=== PATIENT | female | born 1990 | race Caucasian/White ===

== ENCOUNTER 2020-01-02 17:55 | Emergency (ER) | payer SELFPAY ==
[2020-01-02 18:18] VITALS: BP 135/90; PULSE 89; RESP 18; TEMP 36.8; O2SAT 97; BMI 36.1
[2020-01-02 19:03] VITALS: BP 128/84; PULSE 85; RESP 14; O2SAT 97
--- NOTE | 2020-01-02 19:11 | W.ED.SKABFB ---
HPI - Skin/Abscess/Foreign Bdy General: Chief complaint: Skin/Abscess/Foreign Body Stated complaint: facial swelling Time Seen by Provider: 01/02/20 18:49 Source: patient Mode of arrival: ambulatory Limitations: no limitations History of Present Illness: HPI narrative: 29-year-old female who states that this morning she noticed a small sore to the right side of her face and had some erythema and tenderness to it. States it is warm to touch. She denies any drainage. She denies any worsening or improving factors. States the pain is very minimal. MD complaint: rash and abscess/boil Associated symptoms: Deny chills, fever(s), nausea or vomiting Review of Systems Const: Denies: fever(s), chills, body aches or change in appetite Eyes: Denies: blurry vision or eye discomfort ENMT: Denies: throat pain or dental pain Card: Denies: chest pain Resp: Denies: dyspnea GI: Denies: abdominal pain, nausea, vomiting or diarrhea : Denies: dysuria Musc: Denies: neck pain or back pain Skin/Breast: Reports: erythema and sores Neuro: Denies: headache(s) Psych: Denies: depression Christian/Lymph: Denies: easy bruising All/Imm: Denies: urticaria Physical Exam Const: COMMON NORMALS: no acute distress, patient oriented x3 and healthy appearing HENMT: COMMON NORMALS: normocephalic and atraumatic HEAD & SCALP: normocephalic and atraumatic Eye: COMMON NORMALS: Equal, round and reactive pupils present and EOMs intact bilaterally PUPIL: Yes Equal, round and reactive pupils present Neck/C-Spine: COMMON NORMALS: full ROM and supple Chest: COMMONS NORMALS: normal inspection of the chest and normal palpation of entire chest wall Resp: COMMON NORMALS: normal respiratory effort, No retractions, No use of accessory muscles and clear to auscultation bilaterally AUSCULTATION: clear to auscultation bilaterally Cardio: COMMON NORMALS: regular rate, regular rhythm and No murmurs present (Cardio) RATE: regular rate RHYTHM: regular rhythm GI: COMMON NORMALS: Normal to inspection, nondistended, normoactive bowel sounds present, Soft to palpation, non-tender and no masses PALPATION: Yes Soft to palpation Extremity: COMMON NORMALS: normal to inspection and full ROM Neuro: COMMON NORMALS: patient oriented x3, moves all extremities and no focal motor deficits Psych: COMMON NORMALS: mental status grossly normal, Normal thought process present and cooperative THOUGHT PROCESS: Normal thought process present Skin: COMMON NORMALS: no wounds NARRATIVE SKIN EXAM: Slight area of cellulitis to right side of the face with one sore with no abscess formation at this time. Course Vital Signs: Vital signs: Vital Signs Temperature 98.3 F 01/02/20 18:18 Pulse Rate 85 01/02/20 19:03 Respiratory Rate 14 01/02/20 19:03 Blood Pressure 128/84 01/02/20 19:03 Pulse Oximetry 97 01/02/20 19:03 MDM - Skin/Abscess/Foreign Bdy MDM Narrative: Medical decision making narrative: Patient presents with cellulitis to right side of her face. She has no abscess formation at this time. She is to do warm compresses and will place her on Bactrim. I informed her if she has any signs of abscess she is to return and will need it drained. Discharge Plan Discharge Patient Disposition: Home Clinical Impression: Cellulitis Qualifiers: Site of cellulitis: face Qualified Code(s): L03.211 - Cellulitis of face Condition: Stable Prescriptions: New Bactrim DS 800-160 mg tablet 1 tab PO BID 10 Days Qty: 20 RF: 0 Discharge Orders: Discharge Order (Routine); Ordered 01/02/20 Ordered By: Marv Juan Discharge Diet: Advance as tolerated Discharge Activity: Resume usual activity Patient Instructions: Cellulitis (ED) Discharge Date/Time: 01/02/20 19:03 Coding Level of Care Code ED Screening Tech for Jaida Baires
== END 2020-01-02 19:03 | disposition home or self-care (01) ==
PROVIDERS: Emergency Provider Emergency Medicine
DX: L03.211 Cellulitis of face (principal)
CPT/HCPCS: 12345; 99281

== ENCOUNTER 2020-01-04 21:36 | Emergency (ER) | payer SELFPAY ==
[2020-01-04 22:27] VITALS: PULSE 95; RESP 18; TEMP 37; O2SAT 98
--- NOTE | 2020-01-04 23:59 | ED_ITS ---
HPI - Skin/Abscess/Foreign Bdy General: Chief complaint: Skin/Abscess/Foreign Body Stated complaint: cyst Time Seen by Provider: 01/04/20 21:39 Source: patient Mode of arrival: ambulatory Limitations: no limitations History of Present Illness: HPI narrative: 29-year-old female who has an abscess to the right side of her face. She was seen here 2 days ago but had no abscess formation at that time and was started on Bactrim. She states that the area is increased and she had slight drainage from it as well. States she is also had an abscess pop up to her left lower leg. States both areas are painful and rates pain a 3 out of 10. Denies any fevers. She has been taking her Bactrim. Associated symptoms: Deny chills, fever(s), nausea or vomiting Review of Systems Const: Denies: fever(s), chills, body aches or change in appetite Eyes: Denies: blurry vision or eye discomfort ENMT: Denies: throat pain or dental pain Card: Denies: chest pain Resp: Denies: dyspnea GI: Denies: abdominal pain, nausea, vomiting or diarrhea : Denies: dysuria Musc: Denies: neck pain or back pain Skin/Breast: Reports: other (abscess) Neuro: Denies: headache(s) Psych: Denies: depression Christian/Lymph: Denies: easy bruising All/Imm: Denies: urticaria Physical Exam Const: COMMON NORMALS: no acute distress, patient oriented x3 and healthy appearing HENMT: COMMON NORMALS: normocephalic and atraumatic HEAD & SCALP: normocephalic and atraumatic Eye: COMMON NORMALS: Equal, round and reactive pupils present and EOMs intact bilaterally PUPIL: Yes Equal, round and reactive pupils present Neck/C-Spine: COMMON NORMALS: full ROM and supple Chest: COMMONS NORMALS: normal inspection of the chest and normal palpation of entire chest wall Resp: COMMON NORMALS: normal respiratory effort, No retractions, No use of accessory muscles and clear to auscultation bilaterally AUSCULTATION: clear to auscultation bilaterally Cardio: COMMON NORMALS: regular rate, regular rhythm and No murmurs present (Cardio) RATE: regular rate RHYTHM: regular rhythm GI: COMMON NORMALS: Normal to inspection, nondistended, normoactive bowel sounds present, Soft to palpation, non-tender and no masses PALPATION: Yes Soft to palpation Extremity: COMMON NORMALS: normal to inspection and full ROM Neuro: COMMON NORMALS: patient oriented x3, moves all extremities and no focal motor deficits Psych: COMMON NORMALS: mental status grossly normal, Normal thought process present and cooperative THOUGHT PROCESS: Normal thought process present Skin: COMMON NORMALS: no rashes or lesions noted and no wounds NARRATIVE SKIN EXAM: 1 cm abscess to right side of the face with slight cellulitis, 2 cm abscess to left lower thigh GENERAL SKIN EXAM: no rashes or lesions noted Procedures Abscess I/D Site: face Side (if applicable): right Local Anesthetic: lidocaine 1% Amount of anesthesia used (mL): 5 Technique: incised with #11 blade Amount of fluid expressed (mL): 5 Packing used?: none Complications: pain Course Vital Signs: Vital signs: Vital Signs Temperature 98.6 F 01/04/20 22:27 Pulse Rate 95 01/04/20 22:27 Respiratory Rate 18 01/04/20 22:27 Pulse Oximetry 98 01/04/20 22:27 MDM - Skin/Abscess/Foreign Bdy MDM Narrative: Medical decision making narrative: Patient had abscess to the face and to the leg. Both abscesses were incised and drained with purulent drainage. Patient had no packing placed she is to continue to do the Bactrim. She is to do warm soaks. She is to return if worsening. She understands and agrees to plan. Discharge Plan Discharge Patient Disposition: Home Clinical Impression: Abscess of skin or subcutaneous tissue Qualifiers: Site of cutaneous abscess: face Qualified Code(s): L02.01 - Cutaneous abscess of face Condition: Stable Prescriptions: New [place] 5-325 mg tablet 1 tab PO Q6H PRN (Reason: pain) Qty: 8 RF: 0 No Action Bactrim DS 800-160 mg tablet 1 tab PO BID 10 Days Qty: 20 RF: 0 Discharge Orders: Discharge Order (Routine); Ordered 01/05/20 Ordered By: Marv Juan Discharge Diet: Advance as tolerated Discharge Activity: Resume usual activity Patient Instructions: Abscess Incision and Drainage (ED) Coding Level of Care Code ED Health Records Technology Teacher for Jaida Baires
[2020-01-05 00:56] VITALS: BP 140/92; PULSE 82; RESP 20; TEMP 36.6; O2SAT 97
== END 2020-01-05 01:05 | disposition home or self-care (01) ==
PROVIDERS: Emergency Provider Emergency Medicine
DX: L02.01 Cutaneous abscess of face (principal)
CPT/HCPCS: 10060; 12345; 99281; 99283

== ENCOUNTER 2020-02-05 01:22 | Emergency (ER) | payer SELFPAY ==
[2020-02-05 01:39] VITALS: BP 123/89; PULSE 91; RESP 17; TEMP 36.7; O2SAT 98; BMI 29.9
--- NOTE | 2020-02-05 02:48 | W.ED.GENADLT ---
HPI - General Adult General: Chief complaint: General Medical Stated complaint: couldnt breath in hot shower/ bronchitis? Time Seen by Provider: 02/05/20 02:28 History of Present Illness: HPI narrative: Patient comes in with nasal congestion and difficulty breathing after a shower. Patient denies any exposure to COVID symptoms. Patient reports her daughter is also sick at home. Review of Systems General: Reports: 10 or more systems reviewed and unremarkable except in HPI and below ENMT: Reports: throat pain and nasal congestion [facility] ED Female Reproductive History: Date of last menstrual period: 01/06/20 Physical Exam Const: COMMON NORMALS: no acute distress and patient oriented x3 GENERAL APPEARANCE: cooperative HENMT: COMMON NORMALS: normocephalic and Normal external nose present HEAD & SCALP: normal to inspection and normocephalic NOSE: Normal external nose present MOUTH: other (Erythematous palatal mucosa) THROAT: other (Posterior pharynx erythema) Eye: GENERAL EYE: appearance normal, both eyes and all related structures Neck/C-Spine: COMMON NORMALS: full ROM Lymph: LYMPHATIC: no lymphadenopathy noted Chest: COMMONS NORMALS: normal inspection of the chest Resp: COMMON NORMALS: normal respiratory effort EFFORT & INSPECTION: Yes able to speak in complete sentences Cardio: COMMON NORMALS: regular rate and regular rhythm RATE: regular rate RHYTHM: regular rhythm GI: COMMON NORMALS: non-tender Back/Pelvis: COMMON NORMALS: thoracic and lumbar spine normal to inspection Extremity: COMMON NORMALS: normal to inspection Neuro: COMMON NORMALS: patient oriented x3 and moves all extremities Psych: COMMON NORMALS: mental status grossly normal and cooperative Skin: COMMON NORMALS: no rashes or lesions noted GENERAL SKIN EXAM: no rashes or lesions noted Course Vital Signs: Vital signs: Vital Signs Temperature 98.1 F 02/05/20 01:39 Pulse Rate 91 02/05/20 01:39 Respiratory Rate 17 02/05/20 01:39 Blood Pressure 123/89 02/05/20 01:39 Pulse Oximetry 98 02/05/20 01:39 MDM - General Adult MDM Narrative: Medical decision making narrative: Patient comes in today with complaints of nasal congestion and difficulty breathing after getting out of the shower. On exam patient has a junk also edema, posterior pharyngeal erythema, and soft palatal erythema. Differential diagnosis includes strep pharyngitis, upper respiratory infection, viral syndrome, sinusitis. Reviewed exam with patient with recommendations for further treatment. Patient was given 8 mg of Decadron for sore throat and nasal congestion. Patient should continue with fluids rest and pseudoephedrine for symptoms. Lab Data: Labs: Lab Results 02/05/20 Range/Units 02:48 Group A Strep Rapi d Negative (Negative) Discharge Plan Discharge Patient Disposition: Home Clinical Impression: URI (upper respiratory infection) Qualifiers: URI type: unspecified URI Qualified Code(s): J06.9 - Acute upper respiratory infection, unspecified Condition: Stable Prescriptions: New pseudoephedrine HCl 30 mg tablet 30 mg PO Q6H PRN (Reason: nasal congestion) Qty: 20 RF: 0 No Action [place] 5-325 mg tablet 1 tab PO Q6H PRN (Reason: pain) Qty: 8 RF: 0 Discharge Orders: Discharge Order (Routine); Ordered 02/05/20 Ordered By: Jalen Spencer Discharge Diet: Usual diet Discharge Activity: Increase activity as tolerated Patient Instructions: Sinusitis (ED) Activity Restrictions/Additional Instructions: Drink plenty of fluids. Healthy diet and activity. Use acetaminophen and ibuprofen for discomfort. Use pseudoephedrine for nasal congestion. Follow-up with primary care for further treatment and evaluation. Coding Level of Care Code ED Workforce Management Manager for Jaida Fwd Exam Comprehensive
[2020-02-05 03:23] LABS: Rapid Strep A Test Negative (Negative)
[2020-02-05] MEDS: dexamethasone 4 mg Tablet 8 MG PO (04:04)
[2020-02-05 04:06] VITALS: RESP 16
== END 2020-02-05 04:07 | disposition home or self-care (01) ==
PROVIDERS: Emergency Provider Nurse Practitioner Family
DX: J06.9 Acute upper respiratory infection, unspecified (principal)
CPT/HCPCS: 12345; 87081; 87880; 99281; 99283; J8540

== ENCOUNTER 2020-03-15 08:37 | Emergency (ER) | payer SELFPAY ==
[2020-03-15 08:50] VITALS: BP 134/84; PULSE 81; RESP 16; TEMP 36.8; O2SAT 100; BMI 29.9
--- NOTE | 2020-03-15 09:06 | W.ED.SKABFB ---
HPI - Skin/Abscess/Foreign Bdy General: Chief complaint: Skin/Abscess/Foreign Body Stated complaint: Infection Time Seen by Provider: 03/15/20 08:38 History of Present Illness: HPI narrative: 29-year-old female patient presents to the emergency department with 1 day onset of abscess to the right lower extremity, right thigh, she reports shaving yesterday when she noticed a small bump, reports area has increased redness and swelling, states was able to express purulent drainage from the area this morning. She has history of staph, previously prescribed Bactrim which was effective with clearing infection. complaint: abscess/boil Onset (ago): day(s) (24) Tetanus up to date: yes Location: RLE Severity: mild Severity scale (1-10): 4 Quality: burning Pain Consistency: intermittent Relieving factors: none Exacerbating factors: none Associated symptoms: Deny chills, fever(s), nausea or vomiting Treatments prior to arrival: attempted to drain pus at home Review of Systems General: Reports: 10 or more systems reviewed and unremarkable except in HPI and below Const: Denies: fever(s), chills or diaphoresis Eyes: Denies: blurry vision or eye redness ENMT: Denies: throat pain, dental pain or disequilibrium Card: Denies: chest pain, palpitations or irregular heart rhythm Resp: Denies: dyspnea, productive cough, non-productive cough or wheezing GI: Denies: abdominal pain, nausea or vomiting : Denies: difficulty voiding or dysuria Musc: Denies: back pain Skin/Breast: Reports: erythema (Right upper thigh) and other (Complaining of abscess to the right upper thigh); Denies: rash or pruritus Neuro: Denies: headache(s), weakness in extremities or behavioral changes Christian/Lymph: Denies: easy bruising [facility] ED Female Reproductive History: Date of last menstrual period: 01/07/20 Physical Exam Const: COMMON NORMALS: no acute distress, patient oriented x3, healthy appearing and alert GENERAL APPEARANCE: cooperative, comfortable and well hydrated HENMT: COMMON NORMALS: normocephalic, Normal external nose present and moist oral mucous membranes HEAD & SCALP: normocephalic NOSE: Normal external nose present Eye: COMMON NORMALS: Equal, round and reactive pupils present and EOMs intact bilaterally GENERAL EYE: appearance normal, both eyes and all related structures PUPIL: Yes Equal, round and reactive pupils present Neck/C-Spine: COMMON NORMALS: full ROM and no lymphadenopathy GENERAL: Yes normal visual inspection and Yes trachea midline CERVICAL SPINE: Yes cervical ROM normal Lymph: LYMPHATIC: no lymphadenopathy noted Chest: COMMONS NORMALS: normal inspection of the chest Resp: COMMON NORMALS: normal respiratory effort and clear to auscultation bilaterally AUSCULTATION: clear to auscultation bilaterally Cardio: COMMON NORMALS: regular rhythm, S1 normal heart sound present, S2 normal heart sound present and Peripheral pulses 2+ throughout RHYTHM: regular rhythm HEART SOUNDS: S1 normal heart sound present and S2 normal heart sound present PERIPHERAL PULSES: Peripheral pulses 2+ throughout GI: COMMON NORMALS: Soft to palpation and non-tender INSPECTION: Yes normal to inspection PALPATION: Yes Soft to palpation : COMMON NORMALS: Yes no CVA tenderness BLADDER/KIDNEY EXAM: Yes no CVA tenderness EXTERNAL FEMALE EXAM: No Inguinal lymphadenopathy Back/Pelvis: COMMON NORMALS: no CVA tenderness and thoracic and lumbar spine normal to inspection Extremity: COMMON NORMALS: normal to inspection and capillary refill normal Neuro: COMMON NORMALS: patient oriented x3 and no focal motor deficits SENSORIUM/ORIENTATION: Yes alert Psych: COMMON NORMALS: mental status grossly normal, Normal thought process present and cooperative ACTIVITY/MOTOR BEHAVIOR: Yes appropriate eye contact THOUGHT PROCESS: Normal thought process present Skin: COMMON NORMALS: turgor normal GENERAL SKIN EXAM: elasticity normal and turgor normal LESIONS: other (3 cm x 2 cm indurated erythematous abscess with surrounding cellulitis of 8 cm.) Procedures Abscess I/D Site: lower extremity Side (if applicable): right Local Anesthetic: lidocaine 1% and with epi Amount of anesthesia used (mL): 5 Amount of fluid expressed (mL): 10 Irrigation: Yes Packing used?: none Complications: other (none) Course ED course: 29-year-old female patient presents to the emergency department with right upper thigh abscess, developed after shaving. History of MRSA. Previously treated with Bactrim which was effective in clearing infection, incision and drainage completed to the abscess on the right upper thigh with moderate amount of purulent exudate expressed. Tolerated the procedure well, agrees to follow-up with primary care provider who will be set up with social service. Discussion of MRSA and prevention discussed, she was counseled to wash hands frequently and to use bleach with cleaning. Verbalized understanding agrees to return to the emergency department if she develops further complications/fever chills, or worsening abscess formation. Vital Signs: Vital signs: Vital Signs Temperature 98.2 F 03/15/20 08:50 Pulse Rate 81 03/15/20 08:50 Respiratory Rate 16 03/15/20 08:50 Blood Pressure 134/84 03/15/20 08:50 Pulse Oximetry 100 03/15/20 08:50 Discharge Plan Discharge Patient Disposition: Home Clinical Impression: MRSA (methicillin resistant Staphylococcus aureus) Abscess of skin or subcutaneous tissue Qualifiers: Site of cutaneous abscess: extremity Site of cutaneous abscess of extremity: lower extremity Laterality: right Qualified Code(s): L02.415 - Cutaneous abscess of right lower limb Condition: Stable Prescriptions: New Bactrim DS 800-160 mg tablet 1 tab PO BID 7 Days Qty: 14 RF: 0 No Action [place] 5-325 mg tablet 1 tab PO Q6H PRN (Reason: pain) Qty: 8 RF: 0 pseudoephedrine HCl 30 mg tablet 30 mg PO Q6H PRN (Reason: nasal congestion) Qty: 20 RF: 0 Discharge Orders: Discharge Order (Routine); Ordered 03/15/20 Ordered By: Inocencia Lopez Discharge Diet: Usual diet Discharge Activity: Resume usual activity Patient Instructions: Methicillin Resistant Staphylococcus Aureus (ED), Abscess Incision and Drainage (ED) Activity Restrictions/Additional Instructions: Apply warm compresses several times daily to the area to help soften the skin Take antibiotics until all gone, even if feeling better Avoid reusing razors, use disposable razors and throw away each razor after use Continue use of antibacterial soap Wash hands frequently Social service will be contacting you with a follow-up appointment with a primary care provider, please follow-up as directed Follow-up with primary care provider in 4 to 5 days for reevaluation of cellulitis Return to the emergency department if you develop fever, chills or increased redness of the leg Discharge Date/Time: 03/15/20 09:15 Coding Level of Care Code ED Kindergartners Helper for Jaida Fwmoncho Exam Comprehensive
--- NOTE | 2020-03-15 13:37 | DCPLANNER ---
selling manager had message to speak with patient about getting established with a primary care physician. selling manager spoke with patient, she stated that she does not have insurance at this time, she is waiting for her insurance to begin. selling manager offered to send patient the financial assistance for the hospital, patient stated that she was going to wait until she gets her insurance. selling manager gave patient the phone number to the [facility], so when patient is ready to schedule an appointment that she can call the clinic to schedule a follow up.
== END 2020-03-15 09:15 | disposition home or self-care (01) ==
PROVIDERS: Emergency Provider Nurse Practitioner Family
DX: L02.415 Cutaneous abscess of right lower limb (principal); A49.02 Methicillin resistant Staphylococcus aureus infection, unspecified site
CPT/HCPCS: 10060; 12345; 99282

== ENCOUNTER 2020-04-14 14:37 | Emergency (ER) | payer SELFPAY ==
[2020-04-14 14:39] VITALS: BP 134/98; PULSE 84; RESP 16; TEMP 37.1; O2SAT 98; BMI 34.7
--- NOTE | 2020-04-14 15:13 | W.ED.SKABFB ---
HPI - Skin/Abscess/Foreign Bdy General: Chief complaint: Skin/Abscess/Foreign Body Stated complaint: needs abcess drained Time Seen by Provider: 04/14/20 14:52 History of Present Illness: HPI narrative: 29-year-old female patient presents to the emergency department with left axilla abscess. Reports abscess has been present for 1 month. She states attempted to drain the area herself. States is enlarging. MD complaint: abscess/boil Onset (ago): month(s) (1) Tetanus up to date: yes Location: LUE Severity: moderate Severity scale (1-10): 4 Quality: burning and aching Pain Consistency: constant Relieving factors: immobilization Exacerbating factors: none Context: none Associated symptoms: Reports no associated symptoms and other (History of MRSA); Deny chills, fever(s), nausea or vomiting Treatments prior to arrival: attempted to drain pus at home Review of Systems General: Reports: 10 or more systems reviewed and unremarkable except in HPI and below Const: Denies: fever(s), chills or diaphoresis Eyes: Denies: blurry vision or eye redness ENMT: Denies: throat pain, dental pain or disequilibrium Card: Denies: chest pain, palpitations or irregular heart rhythm Resp: Denies: dyspnea, productive cough, non-productive cough or wheezing GI: Denies: abdominal pain, nausea or vomiting : Denies: difficulty voiding or dysuria Musc: Denies: back pain Skin/Breast: Reports: erythema (Left axilla) and skin tenderness (Left axilla); Denies: rash or pruritus Neuro: Denies: headache(s), weakness in extremities or behavioral changes Psych: Denies: anxiety or depression Christian/Lymph: Denies: easy bruising [facility] ED PFSH: Social History (Updated 04/14/20 @ 14:08 by Radha Pelayo LPN) Smoking and tobacco status: never smoked Female Reproductive History: Date of last menstrual period: 01/07/20 Physical Exam Const: COMMON NORMALS: no acute distress, patient oriented x3, healthy appearing and alert GENERAL APPEARANCE: cooperative, comfortable and well hydrated HENMT: COMMON NORMALS: normocephalic, Normal external nose present and moist oral mucous membranes HEAD & SCALP: normocephalic NOSE: Normal external nose present Eye: COMMON NORMALS: Equal, round and reactive pupils present and EOMs intact bilaterally GENERAL EYE: appearance normal, both eyes and all related structures PUPIL: Yes Equal, round and reactive pupils present Neck/C-Spine: COMMON NORMALS: full ROM and no lymphadenopathy GENERAL: Yes normal visual inspection and Yes trachea midline CERVICAL SPINE: Yes cervical ROM normal Lymph: LYMPHATIC: no lymphadenopathy noted Chest: COMMONS NORMALS: normal inspection of the chest Resp: COMMON NORMALS: normal respiratory effort and clear to auscultation bilaterally AUSCULTATION: clear to auscultation bilaterally Cardio: COMMON NORMALS: regular rhythm, S1 normal heart sound present, S2 normal heart sound present and Peripheral pulses 2+ throughout RHYTHM: regular rhythm HEART SOUNDS: S1 normal heart sound present and S2 normal heart sound present PERIPHERAL PULSES: Peripheral pulses 2+ throughout GI: COMMON NORMALS: Soft to palpation and non-tender INSPECTION: Yes normal to inspection PALPATION: Yes Soft to palpation : COMMON NORMALS: Yes no CVA tenderness BLADDER/KIDNEY EXAM: Yes no CVA tenderness Back/Pelvis: COMMON NORMALS: no CVA tenderness and thoracic and lumbar spine normal to inspection Extremity: COMMON NORMALS: normal to inspection and capillary refill normal Neuro: COMMON NORMALS: patient oriented x3 and no focal motor deficits SENSORIUM/ORIENTATION: Yes alert Psych: COMMON NORMALS: mental status grossly normal, Normal thought process present and cooperative ACTIVITY/MOTOR BEHAVIOR: Yes appropriate eye contact THOUGHT PROCESS: Normal thought process present Skin: COMMON NORMALS: no rashes or lesions noted and turgor normal GENERAL SKIN EXAM: no rashes or lesions noted and turgor normal LESIONS: other (abscess 4 cm x 3 cm, fluctuant with erythema, left axilla) Procedures Abscess I/D Site: upper extremity (left axilla) Side (if applicable): left Local Anesthetic: lidocaine 1% and with epi Amount of anesthesia used (mL): 6 Technique: incised with #11 blade Irrigation: Yes Packing used?: none Complications: other (large amount of purulent drainage from the area appreciated) Course Vital Signs: Vital signs: Vital Signs Temperature 98.8 F 04/14/20 14:39 Pulse Rate 84 04/14/20 14:39 Respiratory Rate 16 04/14/20 14:39 Blood Pressure 134/98 04/14/20 14:39 Pulse Oximetry 98 04/14/20 14:39 Discharge Plan Discharge Patient Disposition: Home Clinical Impression: MRSA (methicillin resistant Staphylococcus aureus) Abscess of skin Qualifiers: Site of cutaneous abscess: extremity Site of cutaneous abscess of extremity: axilla Laterality: left Qualified Code(s): L02.412 - Cutaneous abscess of left axilla Condition: Stable Prescriptions: New Bactrim DS 800-160 mg tablet 1 tab PO BID 7 Days Qty: 14 RF: 0 Discharge Orders: Discharge Order (Routine); Ordered 04/14/20 Ordered By: Inocencia Lopez Discharge Diet: Usual diet Discharge Activity: Resume usual activity Patient Instructions: Methicillin Resistant Staphylococcus Aureus (ED), Abscess Incision and Drainage (ED), Abscess (ED) Activity Restrictions/Additional Instructions: Return to the emergency department if you develop fever, chills, redness at the site with streaking. Warm compresses several times daily, this will help with pain Take [id number] ibuprofen/Tylenol as needed for pain, take according to label instructions Complete Bactrim DS until all gone. Take with food to avoid stomach upset Coding Level of Care Code ED Process Pumper for Jaida Baires
== END 2020-04-14 15:21 | disposition home or self-care (01) ==
PROVIDERS: Emergency Provider Nurse Practitioner Family
DX: L02.412 Cutaneous abscess of left axilla (principal); A49.02 Methicillin resistant Staphylococcus aureus infection, unspecified site
CPT/HCPCS: 10060; 12345; 99281; 99282

== ENCOUNTER 2020-05-29 13:19 | Emergency (ER) | payer SELFPAY ==
[2020-05-29 13:31] VITALS: BP 124/86; PULSE 68; RESP 16; TEMP 36.3; O2SAT 98; BMI 36.1
--- NOTE | 2020-05-29 13:46 | ED_ITS ---
HPI - Female Genitourinary General: Chief complaint: Urogenital-Female Stated complaint: Poss UTI Time Seen by Provider: 05/29/20 13:45 History of Present Illness: HPI Narrative: Patient is a 29-year-old female comes to the ED with UTI symptoms. Patient says she has been having UTI symptoms for the past week. She says it is starting to progress and get worse over the last couple days. She is drink cranberry juice that did not help. Denies any fever, chills, nausea or vomiting. She says she has burning sensation when urinating and has some bladder tenderness and some pain in her right flank. She says she frequently gets UTIs and says that the symptoms are like her past UTIs. She states her last UTI was probably close to 3 months ago. Denies any fevers. Associated symptoms: Deny abdominal pain, headache(s) or nausea Date of Last Menstrual Period: 05/08/20 Review of Systems Const: Denies: fever(s), chills or fatigue Eyes: Denies: change in vision or eye discomfort ENMT: Denies: throat pain, odynophagia, nasal discharge or nasal congestion Card: Denies: chest pain, palpitations, edema, swelling of feet/ankles, dyspnea on exertion or orthopnea Resp: Denies: dyspnea, productive cough or non-productive cough GI: Denies: abdominal pain, nausea, vomiting, diarrhea, constipation or hematochezia : Reports: flank pain and dysuria; Denies: hematuria Musc: Denies: neck pain, back pain or extremity swelling Skin/Breast: Denies: rash or new lesions Neuro: Denies: headache(s), numbness in extremities or weakness in extremities PFS ED PFSH: Social History Smoking and tobacco status: never smoked Alcohol intake: never Substance/Drug Use: never Female Reproductive History: Date of last menstrual period: 05/08/20 Physical Exam Const: COMMON NORMALS: no acute distress, patient oriented x3, healthy appearing and alert GENERAL APPEARANCE: cooperative and comfortable NUTRITIONAL APPEARANCE: overweight HENMT: COMMON NORMALS: normocephalic HEAD & SCALP: normocephalic MOUTH: Normal oral and palatal mucosa present THROAT: posterior oropharynx normal and uvula midline Eye: COMMON NORMALS: Equal, round and reactive pupils present PUPIL: Yes Equal, round and reactive pupils present Neck/C-Spine: COMMON NORMALS: supple GENERAL: Yes normal visual inspection Resp: COMMON NORMALS: normal respiratory effort, No retractions, No use of accessory muscles and clear to auscultation bilaterally AUSCULTATION: clear to auscultation bilaterally Cardio: COMMON NORMALS: regular rate, regular rhythm, S1 normal heart sound present, S2 normal heart sound present, No gallops present (Cardio), No clicks present (Cardio), No murmurs present (Cardio) and Peripheral pulses 2+ throughout RATE: regular rate RHYTHM: regular rhythm HEART SOUNDS: S1 normal heart sound present and S2 normal heart sound present PERIPHERAL PULSES: Peripheral pulses 2+ throughout GI: COMMON NORMALS: Normal to inspection, nondistended, normoactive bowel sounds present, Soft to palpation, non-tender and no masses PALPATION: Yes Soft to palpation and Yes Bladder palpation abnormal : BLADDER/KIDNEY EXAM: Yes Bladder palpation abnormal Bladder abnormal details: tender (mild tenderness) and Yes CVA tenderness on the right (mild) Extremity: COMMON NORMALS: no pedal edema Neuro: COMMON NORMALS: patient oriented x3 and moves all extremities SENSORIUM/ORIENTATION: Yes alert Skin: GENERAL SKIN EXAM: dry skin Course Vital Signs: Vital signs: Vital Signs Temperature 97.3 F L 05/29/20 13:31 Pulse Rate 68 05/29/20 14:45 Respiratory Rate 18 05/29/20 14:45 Blood Pressure 124/86 05/29/20 14:45 Pulse Oximetry 98 05/29/20 14:45 MDM - Female MDM Narrative: Medical decision making narrative: Patient is a 29-year-old female comes to the ED with UTI symptoms. Patient says she has frequent UTIs and says that this feels just like her past UTIs. She has dysuria, bladder tenderness and some right flank pain. Urinalysis showed some bacteria, white blood cells and blood. hCG urine negative. Patient diagnosed with UTI and sent home with a prescription for cefdinir. She is told to follow-up with a PCP in 7 to 10 days. Return to ED precautions given. Patient understood agree with plan. Lab Data: Attestation: I reviewed the patient's lab results. Labs: Lab Results 05/29/20 05/29/20 Range/Units 13:33 13:33 Urine Color Yellow (Yellow) Urine Appearance Hazy A (CLEAR) Urine pH 5 (5-7) Ur Specific Gravit y 1.030 (1.005-1.030) Urine Protein Neg (Negative) Urine Glucose (UA) Norm (Normal) Urine Ketones Negative (Negative) Urine Blood 2+ H (Negative) Urine Nitrate Negative (Negative) Urine Bilirubin 1+ H (Negative) Urine Urobilinogen Norm (Negative) mg/dL Ur Leukocyte Lashonda ase 1+ H (Negative) Urine RBC 5-10 H (0-2) /hpf Urine WBC 0-4 H (0-5) /hpf Ur Squamous Epith Cells 5-10 H (0-5) /hpf Amorphous Sediment Not Reportable Urine Bacteria 1+ H (NONE) /hpf Urine Mucus 4+ /hpf Urine HCG, Qual Negative (Negative) Discharge Plan Discharge Patient Disposition: Home Clinical Impression: Urinary tract infection Qualifiers: Urinary tract infection type: acute cystitis Hematuria presence: with hematuria Qualified Code(s): N30.01 - Acute cystitis with hematuria Condition: Stable Prescriptions: New cefdinir 300 mg capsule 300 mg PO BID 10 Days Qty: 20 RF: 0 Discharge Orders: Discharge ED (Routine); Ordered 05/29/20 Ordered By: Luis Felipe Partida Discharge Diet: Regular Discharge Activity: Resume usual activity Activity Restrictions/Additional Instructions: Follow-up with medical provider as directed in 7-10 days. Take medications as prescribed. Drink plenty of fluids and stay hydrated. Return to the ER or your medical provider if condition worsens. Please read and understand discharge instructions. If any questions, please ask. Coding Level of Care Code ED Dry Cleaning Attendant for Jaida Fwmoncho Exam Comprehensive
[2020-05-29 14:04] LABS: Bilirubin Urine 1+ (Negative); Blood Urine 2+ (Negative); Glucose Urine UA Norm (Normal); Ketones Urine Negative (Negative); Leukocyte Esterase Urine 1+ (Negative); Nitrate Urine Negative (Negative); Protein Urine Neg (Negative); Urine Appearance Hazy (CLEAR); Urine Color Yellow (Yellow); Urobilinogen Urine Norm (Negative); pH Urine 5 (5-7)
[2020-05-29 14:05] LABS: Add Urine Culture? No; Bacteria Urine 1+ /hpf; Mucus Urine 4+ /hpf; WBC Urine 0-4 /hpf (0-5)
[2020-05-29 14:45] VITALS: BP 124/86; PULSE 68; RESP 18; O2SAT 98
--- NOTE | 2020-05-29 15:21 | PC.NURSE ---
Agree with Assessment
== END 2020-05-29 14:30 | disposition home or self-care (01) ==
PROVIDERS: Emergency Provider Physician Assistant
DX: N30.01 Acute cystitis with hematuria (principal)
CPT/HCPCS: 12345; 81001; 81025; 99281; 99282

== ENCOUNTER 2020-08-11 08:16 | Emergency (ER) | payer OTHER, MEDICAID, SELFPAY ==
[2020-08-11 08:26] VITALS: BP 131/72; PULSE 97; RESP 16; TEMP 36.5; O2SAT 96; BMI 37.0
[2020-08-11 08:32] VITALS: BP 131/72; PULSE 82; RESP 17; O2SAT 98
--- NOTE | 2020-08-11 08:34 | W.ED.SKABFB ---
HPI - Skin/Abscess/Foreign Bdy General: Chief complaint: Skin/Abscess/Foreign Body Stated complaint: Poss infection left buttock Time Seen by Provider: 08/11/20 08:18 History of Present Illness: HPI narrative: Patient is a 29-year-old female comes to the ED with abscess on left buttock. Symptoms started approximately 3 days ago. Patient says she has a history of MRSA. She reports having a little bit of purulent drainage yesterday. She says that has gotten more tender over the past 3 days and its gotten bigger. Denies fever, chills, chest pain, abdominal pain, bladder or bowel symptoms. Associated symptoms: Deny chills, fever(s), nausea or vomiting Review of Systems Const: Denies: fever(s), chills or fatigue Eyes: Denies: change in vision or eye discomfort ENMT: Denies: throat pain, odynophagia, nasal discharge or nasal congestion Card: Denies: chest pain, palpitations, edema, swelling of feet/ankles, dyspnea on exertion or orthopnea Resp: Denies: dyspnea, productive cough or non-productive cough GI: Denies: abdominal pain, nausea, vomiting, diarrhea, constipation or hematochezia : Denies: flank pain, dysuria or hematuria Musc: Denies: neck pain, back pain or extremity swelling Skin/Breast: Reports: new lesions (Abscess on left buttock); Denies: rash Neuro: Denies: headache(s), numbness in extremities or weakness in extremities PFS ED PFSH: Social History Smoking and tobacco status: never smoked Alcohol intake: never Female Reproductive History: Date of last menstrual period: 07/09/20 Physical Exam Const: COMMON NORMALS: no acute distress, patient oriented x3 and alert GENERAL APPEARANCE: cooperative and comfortable HENMT: COMMON NORMALS: normocephalic HEAD & SCALP: normocephalic MOUTH: Normal oral and palatal mucosa present THROAT: posterior oropharynx normal and uvula midline Neck/C-Spine: COMMON NORMALS: supple GENERAL: Yes normal visual inspection Resp: COMMON NORMALS: normal respiratory effort, No retractions, No use of accessory muscles and clear to auscultation bilaterally AUSCULTATION: clear to auscultation bilaterally Cardio: COMMON NORMALS: regular rate, regular rhythm, S1 normal heart sound present, S2 normal heart sound present, No gallops present (Cardio), No clicks present (Cardio), No murmurs present (Cardio) and Peripheral pulses 2+ throughout RATE: regular rate RHYTHM: regular rhythm HEART SOUNDS: S1 normal heart sound present and S2 normal heart sound present PERIPHERAL PULSES: Peripheral pulses 2+ throughout GI: COMMON NORMALS: Normal to inspection, nondistended, normoactive bowel sounds present, Soft to palpation, non-tender and no masses PALPATION: Yes Soft to palpation : COMMON NORMALS: Yes no CVA tenderness BLADDER/KIDNEY EXAM: Yes no CVA tenderness Back/Pelvis: COMMON NORMALS: no CVA tenderness Extremity: NARRATIVE EXTREMITY EXAM: Abscess on left buttock. Tender upon palpation, erythema and warmth. Fluctuant and nonindurated upon palpation as well. GENERAL: Yes normal exam except as noted Neuro: COMMON NORMALS: patient oriented x3 and moves all extremities SENSORIUM/ORIENTATION: Yes alert Skin: NARRATIVE SKIN EXAM: Abscess on left buttock. Tender upon palpation, erythema and warmth. Fluctuant and nonindurated upon palpation as well. GENERAL SKIN EXAM: dry skin Procedures Abscess I/D Site: lower extremity (Left buttock) Side (if applicable): left Sedation/analgesia: none Local Anesthetic: lidocaine 1% and with epi Amount of anesthesia used (mL): 10 Amount of fluid expressed (mL): 8 Irrigation: Yes Packing used?: none Course Vital Signs: Vital signs: Vital Signs Temperature 97.7 F 08/11/20 08:26 Pulse Rate 82 08/11/20 08:32 Respiratory Rate 17 08/11/20 08:32 Blood Pressure 131/72 08/11/20 08:32 Pulse Oximetry 98 08/11/20 08:32 MDM - Skin/Abscess/Foreign Bdy MDM Narrative: Medical decision making narrative: Patient is a 29-year-old female comes to the ED with abscess on left buttock. I&D was performed using lidocaine 1% with epi as local anesthetic. Abscess was irrigated but no packing was used. Abscess culture and Gram stain pending and hCG was negative. Patient has a history of MRSA and was discharged with a prescription for Bactrim. Return to ED precautions given. Follow-up with PCP in 5 to 7 days for reevaluation. Patient understood agree with plan. Lab Data: Labs: Lab Results 08/11/20 Range/Units 08:42 HCG, Qual Negative (Negative) Discharge Plan Discharge Patient Disposition: Home Clinical Impression: Abscess Condition: Stable Prescriptions: New Bactrim DS 800-160 mg tablet 1 tab PO BID 7 Days Qty: 14 RF: 0 Discharge Orders: Discharge ED (Routine); Ordered 08/11/20 Ordered By: Luis Felipe Partida Discharge Diet: Regular Discharge Activity: Resume usual activity Patient Instructions: Abscess Incision and Drainage (ED), Abscess (ED) Activity Restrictions/Additional Instructions: Follow-up with medical provider as directed in 5 to 7 days to reevaluate abscess. Take medications as prescribed. Return to the ER or your medical provider if condition worsens. Please read and understand discharge instructions. If any questions, please ask. Coding Level of Care Code ED Shadow Graph Weight Operator for Jaida Fwd Exam Comprehensive
[2020-08-11 09:11] LABS: HCG, Serum Qual Negative (Negative)
[2020-08-11] MEDS: sulfamethoxazole-trimeth DS 160-800 mg Tablet 1 TAB PO (09:20)
[2020-08-11] MEDS: LORazepam 1 mg Tablet PO (09:20)
[2020-08-11 09:23] VITALS: BP 115/65; PULSE 82; RESP 18; O2SAT 99
== END 2020-08-11 09:22 | disposition home or self-care (01) ==
PROVIDERS: Emergency Provider Physician Assistant
DX: L02.31 Cutaneous abscess of buttock (principal)
CPT/HCPCS: 10060; 84703; 87070; 87075; 87077; 87186; 87205; 99283

== ENCOUNTER 2020-10-27 19:50 | Emergency (ER) | payer MEDICAID, SELFPAY ==
[2020-10-27 20:04] VITALS: BP 125/86; PULSE 81; RESP 16; TEMP 36.7; O2SAT 97; BMI 38.7
--- NOTE | 2020-10-27 20:51 | XRR_ITS ---
PROCEDURE INFORMATION: Exam: XR Right Hip Exam date and time: 10/27/2020 9:19 PM Age: 29 years old Clinical indication: Hip pain; Right hip TECHNIQUE: Imaging protocol: XR Right hip. Views: 2 or 3 views hip with pelvis when performed. COMPARISON: No relevant prior studies available. FINDINGS: Bones/joints: Unremarkable. No acute fracture. Soft tissues: Unremarkable. XR/XR hip RT 2-3V wo/w pel* [id number] IMPRESSION: Negative for fracture or dislocation.
--- NOTE | 2020-10-27 20:51 | XRR_ITS ---
PROCEDURE INFORMATION: Exam: XR Right Knee Exam date and time: 10/27/2020 9:17 PM Age: 29 years old Clinical indication: Injury or trauma; Fall; Blunt trauma; Knee; Right TECHNIQUE: Imaging protocol: XR Right knee. Views: 3 views. COMPARISON: No relevant prior studies available. FINDINGS: Bones/joints: Normal. Soft tissues: Normal. XR/XR knee RT 3V* [id number] IMPRESSION: Negative for fracture or dislocation
[2020-10-27 21:01] VITALS: PULSE 81; RESP 17; O2SAT 97
--- NOTE | 2020-10-27 21:26 | W.ED.EXTPRO ---
HPI - Extremity Problem General: Chief complaint: Extremity Injury, Lower Stated complaint: right leg injury Time Seen by Provider: 10/27/20 20:56 History of Present Illness: HPI Narrative: Patient is a 29-year-old female comes to the ED with right leg and back injury. Injury occurred a couple hours prior to arrival. Patient says she was taking a step off of her porch and she stepped into a pothole. She says that caused her to jar her leg and right hip. She denies any fall to the ground did not hit her head or lose consciousness. She reports no having pain in her right side lower back that radiates down into her right leg. She says it hurts in her right lower back and then pain shoots down her right leg when she bears weight or moves her right leg. Denies bladder or bowel incontinence, pelvic anesthesia or weakness to lower extremities. Associated symptoms: Deny chest pain, fever(s) or rash Review of Systems Const: Denies: fever(s), chills or fatigue Eyes: Denies: change in vision or eye discomfort ENMT: Denies: throat pain, odynophagia, nasal discharge or nasal congestion Card: Denies: chest pain, palpitations, edema, swelling of feet/ankles, dyspnea on exertion or orthopnea Resp: Denies: dyspnea, productive cough or non-productive cough GI: Denies: abdominal pain, nausea, vomiting, diarrhea, constipation or hematochezia : Denies: flank pain, dysuria or hematuria Musc: Reports: back pain (Right lower back pain) and extremity pain (Pain radiating down right hip right knee and leg.); Denies: neck pain or extremity swelling Skin/Breast: Denies: rash or new lesions Neuro: Denies: headache(s), numbness in extremities or weakness in extremities [facility] ED PFSH: Social History Smoking and tobacco status: never smoked Alcohol intake: never Female Reproductive History: Date of last menstrual period: 07/09/20 Physical Exam Const: COMMON NORMALS: no acute distress, patient oriented x3 and alert GENERAL APPEARANCE: cooperative and comfortable HENMT: COMMON NORMALS: normocephalic HEAD & SCALP: normocephalic MOUTH: Normal oral and palatal mucosa present THROAT: posterior oropharynx normal and uvula midline Neck/C-Spine: COMMON NORMALS: supple GENERAL: Yes normal visual inspection Resp: COMMON NORMALS: normal respiratory effort, No retractions, No use of accessory muscles and clear to auscultation bilaterally AUSCULTATION: clear to auscultation bilaterally Cardio: COMMON NORMALS: regular rate, regular rhythm, S1 normal heart sound present, S2 normal heart sound present, No gallops present (Cardio), No clicks present (Cardio), No murmurs present (Cardio) and Peripheral pulses 2+ throughout RATE: regular rate RHYTHM: regular rhythm HEART SOUNDS: S1 normal heart sound present and S2 normal heart sound present PERIPHERAL PULSES: Peripheral pulses 2+ throughout GI: COMMON NORMALS: Normal to inspection, nondistended, normoactive bowel sounds present, Soft to palpation, non-tender and no masses PALPATION: Yes Soft to palpation : COMMON NORMALS: Yes no CVA tenderness BLADDER/KIDNEY EXAM: Yes no CVA tenderness Back/Pelvis: COMMON NORMALS: no CVA tenderness LUMBAR SPINE/LOWER BACK: Yes pain with ROM, Yes paraspinal muscle tenderness Lumbar paraspinal muscle tenderness: right and Yes straight leg raise positive right Extremity: COMMON NORMALS: normal to inspection and no pedal edema Neuro: COMMON NORMALS: patient oriented x3 and moves all extremities SENSORIUM/ORIENTATION: Yes alert Skin: GENERAL SKIN EXAM: dry skin Course Vital Signs: Vital signs: Vital Signs Temperature 98.1 F 10/27/20 20:04 Pulse Rate 81 10/27/20 21:01 Respiratory Rate 17 10/27/20 21:01 Blood Pressure 125/86 10/27/20 20:04 Pulse Oximetry 97 10/27/20 21:01 MDM - Extremity (Nontraumatic) MDM Narrative: Medical decision making narrative: Patient is a 29-year-old female comes to the ED with lower back pain and right leg pain. Patient says she stepped off a porch step and into a hole in the yard. It dylan her causing pain in her right lower back right hip and knee. She describes the pain is shooting down her right leg. Denies any cauda equina symptoms. Exam findings were remarkable for right-sided paraspinal lumbar muscle tenderness. Positive right straight leg raise. Right knee x-ray showed no acute fractures or findings. Right hip x-ray showed no acute fractures or findings. Patient was given a dose of Toradol and Decadron and diagnosed with lumbar radiculopathy. She was discharged home with a prescription for ibuprofen 600 mg, methocarbamol and a Medrol Dosepak. She was told to follow-up with her PCP in 7 to 10 days for reevaluation. Return to ED precautions given. Patient understood agree with plan. Imaging Data^: Xray Ortho: Attestation: I personally reviewed and interpreted this imaging study as follows: Radiologist's impression: [address], [place] [address]DEpo ReportSigned Patient: Jason Sosa #: [id number]: 1990Acct#:[id number]/Sex: Date: 10/27/20Loc: ERRoom/Bed:Attending Dr: Ordering Provider/Ordering MD: Marv Juan MD Date of Service: 10/27/20 Procedure(s): XR hip RT 2-3V wo/w pel* [id number] Accession Number(s): [id number] Report Number: [id number] PROCEDURE INFORMATION: Exam: XR Right Hip Exam date and time: 10/27/2020 9:19 PM Age: 29 years old Clinical indication: Hip pain; Right hip TECHNIQUE: Imaging protocol: XR Right hip. Views: 2 or 3 views hip with pelvis when performed. COMPARISON: No relevant prior studies available. FINDINGS: Bones/joints: Unremarkable. No acute fracture. Soft tissues: Unremarkable. XR/XR hip RT 2-3V wo/w pel* [id number] IMPRESSION: Negative for fracture or dislocation. Dictated By:Michael Barber MDSigned By:Michael Barber MDSigned Date/Time:10/27/20 2216DD/ [address] [place], [place] [address]EJdp ReportSigned Patient: Jason Sosa #: [id number]: 1990Acct#:[id number]/Sex: FAD Date: 10/27/20Loc: ERRoom/Bed:Attending Dr: Ordering Provider/Ordering MD: Marv Juan MD Date of Service: 10/27/20 Procedure(s): XR knee RT 3V* [id number] Accession Number(s): [id number] Report Number: [id number] PROCEDURE INFORMATION: Exam: XR Right Knee Exam date and time: 10/27/2020 9:17 PM Age: 29 years old Clinical indication: Injury or trauma; Fall; Blunt trauma; Knee; Right TECHNIQUE: Imaging protocol: XR Right knee. Views: 3 views. COMPARISON: No relevant prior studies available. FINDINGS: Bones/joints: Normal. Soft tissues: Normal. XR/XR knee RT 3V* [id number] IMPRESSION: Negative for fracture or dislocation Dictated By:Michael Barber MDSigned By:Michael Barber MDSigned Date/Time:10/27/20D/ 11 Discharge Plan Discharge Patient Disposition: Home Clinical Impression: Lumbar radiculopathy Condition: Stable Prescriptions: New methocarbamol 750 mg tablet 750 mg PO Q8H Qty: 20 RF: 0 Medrol (Abdullahi) 4 mg tablets,dose pack See Rx Instructions .ROUTE .COMPLEX Qty: 21 RF: 0 ibuprofen 600 mg tablet 600 mg PO Q8H PRN (Reason: pain) Qty: 20 RF: 0 Discharge Orders: Discharge ED (Routine); Ordered 10/27/20 Ordered By: Luis Felipe Partida Discharge Diet: Regular Discharge Activity: Increase activity as tolerated Patient Instructions: Lumbar Radiculopathy (ED) Activity Restrictions/Additional Instructions: Follow-up with medical provider as directed in 7 to 10 days for reevaluation. Take medications as prescribed. Rest and apply cold pack or heat on lower back to help with symptoms. Make sure to stretch lower back and legs daily. Limit activity and lifting for the next couple days and then advance as tolerated. Return to the ER or your medical provider if condition worsens. Please read and understand discharge instructions. Thank you for choosing [facility] for your healthcare needs today. Please realize this is an emergency room and that we are providing you with a medical screening exam and this may not be complete and all inclusive of all the testing and or work up that you may need to determine your ailment or severity of your illness. It is very important that you follow up as instructed or that you return to the Emergency Department should you have concerns or if your condition changes or worsens in any way. Coding Level of Care Code ED Ticket Attendant for Chg Fwd Exam Comprehensive
[2020-10-27] MEDS: dexamethasone 10 mg/mL INJ IM (21:56)
[2020-10-27] MEDS: ketorolac 60 mg/2 mL INJ IM (21:58)
== END 2020-10-27 22:08 | disposition home or self-care (01) ==
PROVIDERS: Emergency Provider Physician Assistant
DX: M54.16 Radiculopathy, lumbar region (principal)
CPT/HCPCS: 73502; 73562; 96372; 99283; J1100; J1885

== ENCOUNTER 2020-11-25 17:18 | Emergency (ER) | payer MEDICAID, SELFPAY ==
[2020-11-25 17:33] VITALS: BP 131/87; PULSE 83; RESP 18; TEMP 36.8; O2SAT 97; BMI 38.8
--- NOTE | 2020-11-25 18:15 | ED_ITS ---
HPI - Wound/Laceration General: Chief Complaint: Wound/Laceration Stated Complaint: PAINFUL SORE RIGHT SIDE Time Seen by Provider: 11/25/20 18:11 History of Present Illness: HPI narrative: Patient is a 30-year-old female comes to the ED with painful skin lesion on right mid back. Patient says she noticed the lesion approximately 1 week ago. She says they were out camping when the lesion first popped up and started. She thought it could potentially be a spider bite but is unsure if that is the cause of it. She says it is gotten more red and painful over the last week. She reports a little bit of small clear and purulent drainage from it. Denies any other symptoms. Patient's last menstrual period was on November 12, 2020 and she denies currently being . Associated symptoms: Denies chills, fever(s), nausea or vomiting Review of Systems Const: Denies: fever(s), chills or fatigue Eyes: Denies: change in vision or eye discomfort ENMT: Denies: throat pain, odynophagia, nasal discharge or nasal congestion Card: Denies: chest pain, palpitations, edema, swelling of feet/ankles, dyspnea on exertion or orthopnea Resp: Denies: dyspnea, productive cough or non-productive cough GI: Denies: abdominal pain, nausea, vomiting, diarrhea, constipation or hematochezia : Denies: flank pain, dysuria or hematuria Musc: Denies: neck pain, back pain or extremity swelling Skin/Breast: Reports: new lesions (Erythemic and painful nodule on right mid back.); Denies: rash Neuro: Denies: headache(s), numbness in extremities or weakness in extremities PFS ED PFSH: Social History Smoking and tobacco status: never smoked Alcohol intake: never Female Reproductive History: Date of last menstrual period: 11/12/20 Physical Exam Const: COMMON NORMALS: no acute distress, patient oriented x3 and alert GENERAL APPEARANCE: cooperative and comfortable HENMT: COMMON NORMALS: normocephalic HEAD & SCALP: normocephalic MOUTH: Normal oral and palatal mucosa present THROAT: posterior oropharynx normal and uvula midline Neck/C-Spine: COMMON NORMALS: supple GENERAL: Yes normal visual inspection Resp: COMMON NORMALS: normal respiratory effort, No retractions, No use of accessory muscles and clear to auscultation bilaterally AUSCULTATION: clear to auscultation bilaterally Cardio: COMMON NORMALS: regular rate, regular rhythm, S1 normal heart sound present, S2 normal heart sound present, No gallops present (Cardio), No clicks present (Cardio), No murmurs present (Cardio) and Peripheral pulses 2+ throughout RATE: regular rate RHYTHM: regular rhythm HEART SOUNDS: S1 normal heart sound present and S2 normal heart sound present PERIPHERAL PULSES: Peripheral pulses 2+ throughout GI: COMMON NORMALS: Normal to inspection, nondistended, normoactive bowel sounds present, Soft to palpation, non-tender and no masses PALPATION: Yes Soft to palpation : COMMON NORMALS: Yes no CVA tenderness BLADDER/KIDNEY EXAM: Yes no CVA tenderness Back/Pelvis: COMMON NORMALS: no CVA tenderness Extremity: COMMON NORMALS: normal to inspection Neuro: COMMON NORMALS: patient oriented x3 and moves all extremities SENSORIUM/ORIENTATION: Yes alert Skin: NARRATIVE SKIN EXAM: Right side upper back?patient has a small, erythemic tender lesion. No visible purulent drainage seen. Findings suggestive of cellulitis. GENERAL SKIN EXAM: dry skin Course Vital Signs: Vital signs: Vital Signs Temperature 98.3 F 11/25/20 17:33 Pulse Rate 83 11/25/20 17:33 Respiratory Rate 18 11/25/20 17:33 Blood Pressure 131/87 11/25/20 17:33 Pulse Oximetry 97 11/25/20 17:33 MDM - Wound/Laceration MDM Narrative: Medical decision making narrative: Patient is a 30-year-old female who comes to the ED with painful lesion on right upper back. Patient appears in no acute distress or pain and vitals are stable. Exam findings suggestive of cellulitis. Patient diagnosed with cellulitis and discharged home with Bactrim. Return to ED precautions given. Follow-up with PCP in 7 to 10 days for reevaluation. Patient understood with plan. Discharge Plan Discharge Patient Disposition: Home Clinical Impression: Cellulitis Qualifiers: Site of cellulitis: trunk Site of cellulitis of trunk: back Qualified Code(s): L03.312 - Cellulitis of back [any part except buttock] Condition: Stable Prescriptions: New Bactrim DS 800-160 mg tablet 1 tab PO BID 7 Days Qty: 14 RF: 0 No Action methocarbamol 750 mg tablet 750 mg PO Q8H Qty: 20 RF: 0 Medrol (Abdullahi) 4 mg tablets,dose pack See Rx Instructions .ROUTE .COMPLEX Qty: 21 RF: 0 ibuprofen 600 mg tablet 600 mg PO Q8H PRN (Reason: pain) Qty: 20 RF: 0 Discharge Orders: Discharge ED (Routine); Ordered 11/25/20 Ordered By: Luis Felipe Partida Discharge Diet: Regular Discharge Activity: Resume usual activity Patient Instructions: Cellulitis (ED) Activity Restrictions/Additional Instructions: Follow-up with medical provider as directed in 7 to 10 days for reevaluation. take medications as prescribed. Return to the ER or your medical provider if condition worsens. Please read and understand discharge instructions. Thank you for choosing [facility] for your healthcare needs today. Please realize this is an emergency room and that we are providing you with a medical screening exam and this may not be complete and all inclusive of all the testing and or work up that you may need to determine your ailment or severity of your illness. It is very important that you follow up as instructed or that you return to the Emergency Department should you have concerns or if your condition changes or worsens in any way. Coding Level of Care Code ED Sales Representative Business [employer]ourses for Jaida Fwmoncho Exam Comprehensive
[2020-11-25] MEDS: sulfamethoxazole-trimeth DS 160-800 mg Tablet 1 TAB PO (18:31)
== END 2020-11-25 18:45 | disposition home or self-care (01) ==
PROVIDERS: Emergency Provider Physician Assistant
DX: L03.312 Cellulitis of back [any part except buttock and flank] (principal)
CPT/HCPCS: 99282

== ENCOUNTER 2021-07-07 11:44 | Emergency (ER) | payer MEDICAID, SELFPAY ==
[2021-07-07 11:55] VITALS: BP 151/100; PULSE 74; RESP 16; TEMP 36.8; O2SAT 97
--- NOTE | 2021-07-07 12:04 | W.ED.EXTPRO ---
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 Patient declines following work comp. Says she will take care of her self. Patient says continue to bother her and and now it makes a popping sound at times and it hurts. Complaint: joint pain (Right shoulder) Onset (ago): week(s) Location: right and upper extremity Associated symptoms: Deny chest pain, fever(s) or rash Review of Systems Const: Denies: fever(s), chills or body aches Eyes: Denies: eye discomfort ENMT: Denies: throat pain Card: Reports: dyspnea on exertion; Denies: chest pain Resp: Denies: dyspnea GI: Reports: nausea and vomiting; Denies: abdominal pain Musc: Reports: joint pain (Right shoulder is hurting and pops at times, from injury that happened a wh) Skin/Breast: Denies: rash Neuro: Denies: headache(s) Psych: Denies: depression or suicidal ideation PFS ED PFSH: Social History Smoking and tobacco status: never smoked Alcohol intake: never Female Reproductive History: Date of last menstrual period: 11/12/20 Physical Exam Const: COMMON NORMALS: no acute distress, patient oriented x3 and alert HENMT: COMMON NORMALS: normocephalic HEAD & SCALP: normocephalic Eye: COMMON NORMALS: EOMs intact bilaterally Neck/C-Spine: COMMON NORMALS: no JVD Resp: COMMON NORMALS: normal respiratory effort and No use of accessory muscles Cardio: COMMON NORMALS: no JVD GI: INSPECTION: Yes normal to inspection Extremity: RIGHT UPPER EXTREMITY: Yes shoulder joint (Tenderness palpation to anterior and posterior aspect. Range of motion frank) Right shoulder: Yes Right shoulder joint neurovascular exam (Intact) and Yes Right shoulder joint special tests (Pain with upward motion of the arm against resistance, downward resistance ) Right shoulder special tests: Empty can test: Positive and Apley scratch test: Positive Neuro: COMMON NORMALS: patient oriented x3 SENSORIUM/ORIENTATION: Yes alert Psych: COMMON NORMALS: mental status grossly normal Skin: COMMON NORMALS: no rashes or lesions noted GENERAL SKIN EXAM: no rashes or lesions noted Course Vital Signs: Vital signs: Vital Signs Temperature 98.2 F 07/07/21 11:55 Pulse Rate 74 07/07/21 11:55 Respiratory Rate 16 07/07/21 11:55 Blood Pressure 151/100 07/07/21 11:55 Pulse Oximetry 97 07/07/21 11:55 MDM - Extremity (Nontraumatic) Medical Decision Making Patient with most likely rotator cuff strain/tendinitis. Patient was encouraged to use medication as directed do range of motion exercises follow-up primary care provider for further evaluation possible physical therapy and MRI. 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 Discharge Plan Discharge Patient Disposition: Home Clinical Impression: Right rotator cuff tendonitis Condition: Stable Prescriptions: New Celebrex 100 mg capsule 100 mg PO BID Qty: 20 0RF Arthritis Pain (diclofenac) 1 % gel 4 g topical QID Qty: 100 0RF Rx Instructions: apply to single knee, ankle, foot; for foot includes sole/toes/top of foot Discontinued methylprednisolone [Medrol (Abdullahi)] 4 mg tablets,dose pack See Rx Instructions PO PER PKG DIR Qty: 21 0RF Rx Instructions: PO PER PKG DIR amoxicillin 500 mg tablet 500 mg PO Q12H Qty: 20 0RF Discharge Orders: Discharge ED (Routine); Ordered 07/07/21 Ordered By: Dago Virgen Discharge Diet: Usual diet Discharge Activity: Increase activity as tolerated Patient Instructions: Rotator Cuff Tendinitis (ED) Activity Restrictions/Additional Instructions: Follow-up with medical provider as directed. Take medications as prescribed. Return to the ER or your medical provider if condition worsens. Please read and understand discharge instructions. If any questions ask please. Do range of motion exercises as instructed. Follow-up your primary care provider and see if they would like to do physical therapy referral or possibly an MRI. Coding Level of Care Code ED Technician Support Association for Jaida Baires
== END 2021-07-07 12:16 | disposition home or self-care (01) ==
PROVIDERS: Emergency Provider Nurse Practitioner Family
DX: M77.8 Other enthesopathies, not elsewhere classified (principal)
CPT/HCPCS: 99281

== ENCOUNTER → 2021-07-09 14:41 | Outpatient (BNVA) | payer MEDICAID, SELFPAY | PROVIDERS: Visit Provider Family Medicine | DX: N39.0 Urinary tract infection, site not specified (principal); Z76.89 Persons encountering health services in other specified circumstances | CPT/HCPCS: 80053; 81000; 85025 ==

== ENCOUNTER 2021-07-12 12:19 | Outpatient (CLI) | payer MEDICAID, SELFPAY ==
--- NOTE | 2021-07-12 12:28 | XR_ITS ---
WS: [id number] SHOULDER RIGHT TECHNIQUE: 3 views of the right shoulder CLINICAL INFORMATION: R shoulder pain COMPARISON: None. FINDINGS: Normal acromioclavicular joint. Normal glenohumeral joint. Acromion is normal in appearance. Normal g lenoid. No evidence of acute fracture or dislocation. XR/XR shoulder RT min 2V* [id number] IMPRESSION: Normal right shoulder.
== END 2021-07-12 12:20 | disposition home or self-care (01) ==
PROVIDERS: PCP Family Medicine; Visit Provider Family Medicine
DX: M25.511 Pain in right shoulder (principal)
CPT/HCPCS: 73030

== ENCOUNTER 2021-11-30 21:20 | Emergency (ER) | payer MEDICAID, SELFPAY ==
[2021-11-30 21:25] VITALS: BP 144/91; PULSE 97; RESP 20; TEMP 37.2; O2SAT 98; BMI 38.2
--- NOTE | 2021-12-01 00:06 | ECG_ITS ---
[facility] Test Date: 2021-11-30 Pat Name: Letyt Sosa Department: Room: Gender: Female Field Representative/Health Education: : 1990 Requested By: Chadd Briscoe Order Number: [id number] Ghosh MD: Channing Emerson M.D. Measurements Intervals [place] Rate: 87 P: 12 LA: 162 QRS: -5 QRSD: 100 T: 10 QT: 324 QTc: 391 Interpretive Statements SINUS RHYTHM INCOMPLETE RIGHT BUNDLE BRANCH BLOCK [90+ ms QRS DURATION, TERMINAL R IN V1/V2, 40+ ms S IN I/aVL/V4/V5/V6] No previous ECG available for comparison Electronically Signed On 12-01-2021 12:29:23 CDT by Channing Emerson M.D. [email or web address] [email or web address] olive branch hospitalExteNet Systemsmansfield [email or web address]/store/[id number] f
--- NOTE | 2021-12-01 00:07 | XRR_ITS ---
PROCEDURE INFORMATION: Exam: XR Chest Exam date and time: 12/01/2021 12:11 AM Age: 31 years old Clinical indication: Shortness of breath; Additional info: SOB, chest tight TECHNIQUE: Imaging protocol: Radiologic exam of the chest. Views: 1 view. COMPARISON: CR XR shoulder RT min 2V* [id number] 07/12/2021 12:35 PM FINDINGS: Lungs: Unremarkable. No consolidation. Pleural spaces: Unremarkable. No pleural effusion. No pneumothorax. Heart/Mediastinum: Unremarkable. No cardiomegaly. Bones/joints: Unremarkable. XR/XR chest 1V portable [id number] IMPRESSION: No acute findings.
[2021-12-01 00:30] VITALS: BP 137/92; PULSE 81; RESP 18; O2SAT 96
[2021-12-01] MEDS: dexamethasone 4 mg Tablet 10 MG PO (02:02)
[2021-12-01] MEDS: LORazepam 1 mg Tablet PO (02:03)
[2021-12-01 02:04] VITALS: BP 139/83; PULSE 84; RESP 16; O2SAT 97
--- NOTE | 2021-12-01 16:10 | ED_ITS ---
HPI - Anxiety General: Chief Complaint: Anxiety Stated Complaint: Chest Pain\Headache Time Seen by Provider: 12/01/21 00:06 Source: patient History of Present Illness: year old female who has had some bronchitis/upper respiratory type symptoms lately. She decided to work at [employer] for the [employer] department. It was quite hot there. She began to get a bit short of breath, and had some chest discomfort, which provoked her anxiety. She has had these episodes in the past. she's significantly improved now. She denies fever or body aches. She does no recent cough, which she believes is improving to some degree. MD complaint: anxiety, heart racing and shortness of breath Onset (ago): hour(s) Symptoms: dyspnea, chest pain and palpitations Severity: moderate Quality: improving Place: work and outdoors History of similar episodes: Yes Provoking factors: emotional stress and work/job stress Relieving factors: deep breaths and rest Exacerbating factors: nothing Associated symptoms: Reports chest pain, diaphoresis, nausea, short of breath, syncope (near-syncope) and weakness; Deny chills, confusion, fever(s), headache(s) or vomiting Review of Systems Const: Reports: diaphoresis; Denies: fever(s) or chills Eyes: Reports: change in vision (resolved) ENMT: Reports: throat pain Card: Reports: chest pain and syncope (near-syncope) Resp: Reports: dyspnea and non-productive cough GI: Reports: nausea; Denies: vomiting Neuro: Denies: headache(s) or confusion PFS ED PFSH: Social History Smoking and tobacco status: never smoked Alcohol intake: never Female Reproductive History: Date of last menstrual period: 11/12/20 Physical Exam Const: COMMON NORMALS: no acute distress GENERAL APPEARANCE: cooperative and comfortable; not ill appearing HENMT: COMMON NORMALS: normocephalic, atraumatic and Normal external nose present HEAD & SCALP: normocephalic and atraumatic FACE & SINUS: normal facial exam and face symmetric NOSE: Normal external nose present Eye: COMMON NORMALS: Equal, round and reactive pupils present and EOMs intact bilaterally PUPIL: Yes Equal, round and reactive pupils present Neck/C-Spine: GENERAL: Yes trachea midline Chest: CHEST: Yes Symmetrical chest wall rise Resp: COMMON NORMALS: normal respiratory effort, No retractions, No use of accessory muscles and clear to auscultation bilaterally AUSCULTATION: clear to auscultation bilaterally Cardio: COMMON NORMALS: regular rate and regular rhythm RATE: regular rate RHYTHM: regular rhythm GI: COMMON NORMALS: Normal to inspection, nondistended, normoactive bowel sounds present Neuro: HUMZA COMA SCALE: document GCS findings [place] coma scale eye opening: Spontaneous Humza coma scale verbal response: Orientated Humza coma scale motor response: Obey commands Humza coma scale total score: 15 Course Vital Signs: Vital signs: Vital Signs Temperature 98.9 F 11/30/21 21:25 Pulse Rate 84 12/01/21 02:04 Respiratory Rate 16 12/01/21 02:04 Blood Pressure 139/83 12/01/21 02:04 Pulse Oximetry 97 12/01/21 02:04 MDM - Anxiety Medical Decision Making Symptoms are essentially resolved at this point. Her EKG is normal period her chest X ray is nonacute as well. Should be discharged home. She is given a single dose of dexamethasone for bronchitis symptoms. Lab Data Radiology Impressions Chest X-Ray 12/01/21 00:07 IMPRESSION: No acute findings. Discharge Plan Discharge Patient Disposition: Home Clinical Impression: Acute anxiety, Chest pain Condition: Stable Prescriptions: No Action cyclobenzaprine 10 mg tablet 10 mg PO TID PRN (Reason: muscle spasm) Qty: 30 0RF montelukast [Singulair] 10 mg tablet 10 mg PO DAILY Qty: 30 0RF Celebrex 100 mg capsule 100 mg PO BID Qty: 20 0RF Discharge Orders: Discharge ED (Routine); Ordered 12/01/21 Ordered By: Chadd Julian Referrals: Casey Toussaint DO [Primary Care Provider] - 1-3 days Patient Instructions: Chest Pain (ED), Anxiety (ED) Activity Restrictions/Additional Instructions: Return for worsening chest pain, shortness of breath, fever greater than 100, any other concerning symptoms. Coding Level of Care Code ED Prom Burn Off Operator for Jaida Baires
== END 2021-12-01 02:09 | disposition home or self-care (01) ==
PROVIDERS: Emergency Provider Emergency Medicine; PCP Family Medicine
DX: R07.9 Chest pain, unspecified (principal); F41.9 Anxiety disorder, unspecified
CPT/HCPCS: 71045; 93005; 99283; J8540

== ENCOUNTER 2022-05-02 09:19 | Emergency (ER) | payer MEDICAID, SELFPAY ==
[2022-05-02 09:46] VITALS: BP 131/90; PULSE 65; RESP 14; TEMP 36.7; O2SAT 98; BMI 35.2
--- NOTE | 2022-05-02 09:53 | W.ED.EXTPRO ---
HPI - Extremity Problem General: Chief complaint: Extremity Problem,Nontraumatic Stated complaint: right hand tingling Time Seen by Provider: 05/02/22 09:34 Source: patient Mode of arrival: ambulatory Limitations: no limitations History of Present Illness: 31-year-old female presents to the ER today for right upper extremity tingling and pain. This is a chronic issue that patient reports is getting worse. Patient reports she has a follow-up with neurology but not until November 2022. Patient reports the numbness and tingling now encompasses all but her thumb of the right hand. Patient reports she has never had a nerve conduction study at this time. She reports she is just taking [id number] medications currently for the pain. Patient denies any recent injury. Patient has never tried any wrist braces to help with the carpal tunnel type of pain. Review of Systems General: Reports: 10 or more systems reviewed and unremarkable except in HPI and below PFSH ED PFSH: Social History Smoking and tobacco status: never smoked Alcohol intake: never Female Reproductive History: Date of last menstrual period: 11/12/20 Spontaneous abortions: No Physical Exam Const: COMMON NORMALS: no acute distress, average body habitus, patient oriented x3, no limitations, healthy appearing, alert and well nourished Resp: COMMON NORMALS: normal respiratory effort EFFORT & INSPECTION: Yes able to speak in complete sentences Cardio: COMMON NORMALS: regular rate, regular rhythm and No murmurs present (Cardio) RATE: regular rate RHYTHM: regular rhythm Extremity: NARRATIVE EXTREMITY EXAM: Patient has normal range of motion of the right upper extremity. Normal pulses and no obvious sensation loss. No thenar atrophy or muscle atrophy noted of the right hand. Neuro: COMMON NORMALS: patient oriented x3 SENSORIUM/ORIENTATION: Yes alert Psych: COMMON NORMALS: mental status grossly normal, Normal thought process present and cooperative THOUGHT PROCESS: Normal thought process present Skin: COMMON NORMALS: no rashes or lesions noted and no wounds GENERAL SKIN EXAM: no rashes or lesions noted Course ED course: Patient presents to ER with right upper extremity tingling that is worsening. This is a chronic issue for which patient is currently being worked up and has been referred to neurology. Nothing has really changed other than worsening tingling. Patient has not had a nerve conduction study at this time. She also has never tried any wrist braces. No imaging recommended today given this is a chronic issue with no changes. 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 Patient is awaiting a neurology referral. I recommended patient try some Velcro wrist braces to wear at night which may help some with the tingling in the hands. I also recommended patient follow-up with her PCP next week to discuss a nerve conduction study as that might help her get into neurology sooner. In the meantime, we will stop the Celebrex and try meloxicam. I am not quite sure if patient was actually taking the Celebrex because she does not report anything for pain at home. Also recommended ice to reduce any swelling. Follow-up with PCP as discussed. Return to the ER with new or worsening symptoms. Patient verbalized understanding and was in agreement with the treatment plan. Critical Care Time Critical Care Time: Critical Care Time: No Discharge Plan Discharge Patient Disposition: Home Clinical Impression: Neuropathy of right upper extremity Condition: Stable Prescriptions: New meloxicam 15 mg tablet 15 mg PO DAILY Qty: 20 0RF Discontinued celecoxib [Celebrex] 100 mg capsule 100 mg PO BID Qty: 20 0RF No Action cyclobenzaprine 10 mg tablet 10 mg PO TID PRN (Reason: muscle spasm) Qty: 30 0RF montelukast [Singulair] 10 mg tablet 10 mg PO DAILY Qty: 30 0RF Discharge Orders: Discharge ED (Routine); Ordered 05/02/22 Ordered By: Sarah Flowers Referrals: Casey Toussaint DO [Primary Care Provider] - Discharge Diet: Usual diet Discharge Activity: Increase activity as tolerated Patient Instructions: Opioid Safety, Pain Management Activity Restrictions/Additional Instructions: Wear Velcro wrist splint as discussed. Stop Celebrex and try meloxicam as prescribed. Apply ice to reduce any swelling. Follow-up with PCP next week to discuss a nerve conduction study. Coding Level of Care Code ED Diesel Technician for Jaida Baires
== END 2022-05-02 10:10 | disposition home or self-care (01) ==
PROVIDERS: Emergency Provider Physician Assistant; PCP Family Medicine
DX: G62.9 Polyneuropathy, unspecified (principal); G56.91 Unspecified mononeuropathy of right upper limb
CPT/HCPCS: 99283

== ENCOUNTER 2022-05-17 02:00 | Emergency (ER) | payer MEDICAID, SELFPAY ==
[2022-05-17 02:54] VITALS: BP 136/67; PULSE 67; RESP 16; TEMP 36.8; O2SAT 99; BMI 36.1
--- NOTE | 2022-05-17 04:11 | XRR_ITS ---
PROCEDURE INFORMATION: Exam: XR Right Elbow Exam date and time: 05/17/2022 4:27 AM Age: 31 years old Clinical indication: Injury or trauma; Fall; Blunt trauma (contusions or hematomas); Right; Patient HX: Patient fell at home landing onto RT arm. C/O pain and tingling from elbow to wrist. History of carpal tunnel. TECHNIQUE: Imaging protocol: Radiologic exam of the Right elbow. Views: 3 or more views. COMPARISON: No relevant prior studies available. FINDINGS: Bones/joints: No acute fracture or dislocation is noted. The skeletal structures seem age-appropriate. Soft tissues: Unremarkable. XR/XR elbow RT min 3V* [id number] IMPRESSION: No acute findings.
--- NOTE | 2022-05-17 04:11 | XRR_ITS ---
PROCEDURE INFORMATION: Exam: XR Right Wrist Exam date and time: 05/17/2022 4:27 AM Age: 31 years old Clinical indication: Injury or trauma; Fall; Blunt trauma (contusions or hematomas); Right; Patient HX: Patient fell at home landing onto RT arm. C/O pain and tingling from elbow to wrist. History of carpal tunnel. TECHNIQUE: Imaging protocol: Radiologic exam of the Right wrist. Views: 3 or more views. COMPARISON: No relevant prior studies available. FINDINGS: Bones/joints: No acute fracture or dislocation is noted. The skeletal structures seem age-appropriate. Soft tissues: Unremarkable. XR/XR wrist RT min 3V* [id number] IMPRESSION: No acute findings.
--- NOTE | 2022-05-17 04:11 | XRR_ITS ---
PROCEDURE INFORMATION: Exam: XR Right Forearm Exam date and time: 05/17/2022 4:27 AM Age: 31 years old Clinical indication: Injury or trauma; Fall; Blunt trauma (contusions or hematomas); Arm, lower; Right; Patient HX: Patient fell at home landing onto RT arm. C/O pain and tingling from elbow to wrist. History of carpal tunnel. TECHNIQUE: Imaging protocol: Radiologic exam of the Right forearm. Views: 2 views. COMPARISON: No relevant prior studies available. FINDINGS: Bones/joints: No acute fracture or dislocation is noted. The skeletal structures seem age-appropriate. Soft tissues: Unremarkable. XR/XR forearm RT 2V [id number] IMPRESSION: No acute findings.
[2022-05-17] MEDS: naproxen 500 mg Tablet PO (04:24)
--- NOTE | 2022-05-17 04:37 | W.ED.EXTPRO ---
HPI - Extremity Problem General: Chief complaint: Extremity Injury, Upper Stated complaint: right pain, fall Time Seen by Provider: 05/17/22 04:18 Source: patient Mode of arrival: ambulatory Limitations: no limitations History of Present Illness: 31-year-old female who states she slipped and fell onto her right arm tonight. She has had a history of rotator cuff issues along with carpal tunnel she states she is got pain in her right wrist and right forearm. States pain is a 3 out of 10 no obvious deformities she denies any radiation of her pain. She denies any her head or neck pain. Associated symptoms: Deny chest pain, fever(s) or rash Review of Systems Const: Denies: fever(s), chills, body aches or change in appetite Eyes: Denies: blurry vision or eye discomfort ENMT: Denies: throat pain or dental pain Card: Denies: chest pain Resp: Denies: dyspnea GI: Denies: abdominal pain, nausea, vomiting or diarrhea : Denies: dysuria Musc: Reports: extremity pain Skin/Breast: Denies: rash Neuro: Denies: headache(s) Psych: Denies: depression Christian/Lymph: Denies: easy bruising All/Imm: Denies: urticaria PFSH ED PFSH: Medical History (Updated 05/17/22 @ 04:39 by Marv Juan MD) No pertinent past medical history Social History Smoking and tobacco status: never smoked Alcohol intake: never Female Reproductive History: Date of last menstrual period: 11/12/20 Spontaneous abortions: No Physical Exam Const: COMMON NORMALS: no acute distress and patient oriented x3 HENMT: COMMON NORMALS: normocephalic HEAD & SCALP: normocephalic Eye: COMMON NORMALS: conjunctivae normal CONJUNCTIVA: Yes conjunctivae normal Neck/C-Spine: COMMON NORMALS: supple Chest: COMMONS NORMALS: normal inspection of the chest Resp: COMMON NORMALS: normal respiratory effort Cardio: COMMON NORMALS: regular rate RATE: regular rate GI: INSPECTION: Yes normal to inspection Extremity: NARRATIVE EXTREMITY EXAM: PatientSlight tenderness to right forearm no obvious Neuro: COMMON NORMALS: patient oriented x3 Psych: COMMON NORMALS: mental status grossly normal Skin: COMMON NORMALS: no rashes or lesions noted GENERAL SKIN EXAM: no rashes or lesions noted Course Vital Signs: Vital signs: Vital Signs Temperature 98.3 F 05/17/22 02:54 Pulse Rate 67 05/17/22 02:54 Respiratory Rate 16 05/17/22 02:54 Blood Pressure 136/67 05/17/22 02:54 Pulse Oximetry 99 05/17/22 02:54 Oxygen Delivery Me thod 05/17/22 02:54 MDM - Extremity (Nontraumatic) Medical Decision Making Patient presents here with forearm pain from a fall x-rays here are negative she is stable for discharge. Discharge Plan Discharge Patient Disposition: Home Clinical Impression: Pain of right forearm Condition: Stable Prescriptions: New naproxen [Naprosyn] 500 mg tablet 500 mg PO BID PRN (Reason: pain) Qty: 20 0RF No Action meloxicam 15 mg tablet 15 mg PO DAILY Qty: 20 0RF Discharge Orders: Discharge ED (Routine); Ordered 05/17/22 Ordered By: Marv Juan Referrals: Casey Toussaint DO [Primary Care Provider] - 1-3 days Discharge Diet: Advance as tolerated Discharge Activity: Resume usual activity Patient Instructions: Arm Pain (ED) Coding Level of Care Code ED Casting And Curing Operator for Jaida Baires
== END 2022-05-17 04:55 | disposition home or self-care (01) ==
PROVIDERS: Emergency Provider Emergency Medicine; PCP Family Medicine
DX: M79.631 Pain in right forearm (principal)
CPT/HCPCS: 73080; 73090; 73110; 99283

== ENCOUNTER → 2022-08-05 09:27 | Outpatient (BNVA) | payer MEDICAID, SELFPAY | PROVIDERS: PCP Family Medicine; Visit Provider Family Medicine | DX: N39.0 Urinary tract infection, site not specified (principal); J01.90 Acute sinusitis, unspecified; B96.89 Other specified bacterial agents as the cause of diseases classified elsewhere | CPT/HCPCS: 81000 ==

== ENCOUNTER 2022-09-20 18:36 | Emergency (ER) | payer MEDICAID, SELFPAY ==
[2022-09-20 19:03] VITALS: BP 140/91; PULSE 78; TEMP 36.7; O2SAT 98; BMI 37.0
--- NOTE | 2022-09-20 19:08 | XRR_ITS ---
PROCEDURE INFORMATION: Exam: XR Right Hip Exam date and time: 09/20/2022 7:24 PM Age: 31 years old Clinical indication: Injury or trauma; Fall; Blunt trauma (contusions or hematomas); Right; Hip TECHNIQUE: Imaging protocol: Radiologic exam of the right hip. Views: 1 view hip with pelvis when performed. COMPARISON: CR XR hip RT 2-3V wo/w pel* [id number] 10/27/2020 9:02 PM FINDINGS: Bones/joints: Unremarkable. No acute fracture. Soft tissues: Unremarkable. XR/XR hip RT 2-3V wo/w pel* [id number] IMPRESSION: No acute findings.
--- NOTE | 2022-09-20 19:08 | CTR_ITS ---
PROCEDURE INFORMATION: Exam: CT Head Without Contrast Exam date and time: 09/20/2022 7:20 PM Age: 31 years old Clinical indication: Injury or trauma; Fall; Blunt trauma (contusions or hematomas); With loss of consciousness; Not specified; Additional info: Positive loc TECHNIQUE: Imaging protocol: Computed tomography of the head without contrast. Radiation optimization: All CT scans at this facility use at least one of these dose optimization techniques: automated exposure control; mA and/or kV adjustment per patient size (includes targeted exams where dose is matched to clinical indication); or iterative reconstruction. REPORTING DATA: Count of CT and Cardiac NM exams in prior 12 months: This patient has received 0 known CTs and 0 known cardiac nuclear medicine studies in the 12 months prior to the current study. COMPARISON: No relevant prior studies available. RADIATION DOSE METRICS: Total DLP (mGy-cm): 1073.38 FINDINGS: Brain: Normal. No hemorrhage. Unremarkable white matter. No mass effect. Cerebral ventricles: No ventriculomegaly. Paranasal sinuses: Visualized sinuses are unremarkable. No fluid levels. Mastoid air cells: Visualized mastoid air cells are well aerated. Bones/joints: Unremarkable. No acute fracture. Soft tissues: Unremarkable. CT/CT head wo con* [id number] IMPRESSION: No acute intracranial abnormality.
--- NOTE | 2022-09-20 19:08 | XRR_ITS ---
PROCEDURE INFORMATION: Exam: XR Right Knee Exam date and time: 09/20/2022 7:26 PM Age: 31 years old Clinical indication: Injury or trauma; Fall; Blunt trauma; Knee; Right TECHNIQUE: Imaging protocol: Radiologic exam of the right knee. Views: 3 views. COMPARISON: No relevant prior studies available. FINDINGS: Bones/joints: Osseous structures are intact. Negative for fracture. Joint spaces are preserved. Soft tissues: Normal. XR/XR knee RT 3V* [id number] IMPRESSION: No acute findings.
== END 2022-09-20 21:38 | disposition left against medical advice (07) ==
LOC: ER 18:39
PROVIDERS: Emergency Provider Family Medicine; PCP Family Medicine
DX: Z53.21 Procedure and treatment not carried out due to patient leaving prior to being seen by health care provider (principal)
CPT/HCPCS: 70450; 73502; 73562; 99284